=== PATIENT | male | born 1970 | race Caucasian/White ===

== ENCOUNTER 2019-02-18 22:21 | Emergency (ER) | payer OTHER ==
[~2019-02-18] VITALS: Ht 177.8 cm; Wt 86.2 kg
[~2019-02-18 22:21] MED LIST: ALBUTEROL INHAL17 GM IH; AMBIEN 5 MG TABL5 M1; AZITHROMYCIN 2250 MG PO; CYCLOBENZAPRINE10 MG PO; HYDROCODONE-AP1 EAC6 PO; VICOPROFEN 2001 EACH PO; ZANTAC 150MG T150 MG PO; ZOCOR 10 MG TAB10 MG; ZOCOR 10 MG TAB10 MG PO
[2019-02-18] MEDS ORDERED: ACETAMINOPHEN-1 EAC1 PO (23:51)
[2019-02-19] VITALS: BP 139/84
== END 2019-02-19 00:02 | disposition home or self-care (01) ==
LOC: M.ERS 22:21
DX: S93.492A Sprain of other ligament of left ankle, initial encounter (principal); Z90.49 Acquired absence of other specified parts of digestive tract; W01.0XXA Fall on same level from slipping, tripping and stumbling without subsequent striking against object, initial encounter; Y93.89 Activity, other specified; Y92.89 Other specified places as the place of occurrence of the external cause; Y99.8 Other external cause status